=== PATIENT | male | born 1985 | race Two or more races ===

== ENCOUNTER 2023-05-04 16:36 | Emergency (ER) | payer SELFPAY ==
[~2023-05-04] VITALS: Ht 172.7 cm; Wt 79.5 kg
[2023-05-04] MEDS ORDERED: [UNRECOGNIZED DRUG - REMARK] PO (16:37)
[2023-05-04] MEDS: LORazepam 1 MG TABLET PO ONE (16:52)
[2023-05-04 19:30] VITALS: BP 132/74
== END 2023-05-04 19:35 | disposition home or self-care (01) ==
LOC: EMS 16:38
DX: F41.9 Anxiety disorder, unspecified (principal)
CPT/HCPCS: 93005; 99284; Z7502; Z7610